=== PATIENT | female | born 1960 | race African-American/Black ===

== ENCOUNTER 2017-10-12 23:33 | Emergency (ER) | payer OTHER ==
[2017-10-13 02:19] LABS: ADD MAN DIFF? NO
[2017-10-13 02:21] LABS: BASOPHILS % 0.3 % (0.0-2.0); EOSINOPHILS # 0.2 10^3/ul (0.0-0.5); EOSINOPHILS % 2.2 % (0.0-7.0); HEMATOCRIT 37.3 % (37.0-47.0); HEMOGLOBIN 12.1 g/dl (12.0-16.0); LYMPHOCYTES # 2.9 10^3/ul (0.8-2.9); LYMPHOCYTES % 33.3 % (15.0-51.0); MEAN CORPUSCULAR HEMOGLOBIN 32.3 pg (29.0-33.0); MEAN CORPUSCULAR HGB CONC 32.4 g/dl (32.0-37.0); MEAN CORPUSCULAR VOLUME 99.5 fl (82.0-101.0); MEAN PLATELET VOLUME 10.2 fl (7.4-10.4); MONOCYTE # 0.7 10^3/ul (0.3-0.9); MONOCYTES % 8.1 % (0.0-11.0); NEUTROPHIL # 4.9 10^3/ul (1.6-7.5); NEUTROPHILS % 55.9 % (39.0-77.0); PLATELET COUNT 215 10^3/UL (140-415); RED BLOOD COUNT 3.75 10^6/ul (4.20-5.40); RED CELL DISTRIBUTION WIDTH 12.3 % (11.5-14.5)
[2017-10-13 02:21] LABS: WHITE BLOOD COUNT 8.8 10^3/ul (4.8-10.8)
[2017-10-13 02:43] LABS: ADD UMIC YES; UR ASCORBIC ACID NEGATIVE (NEGATIVE); UR BACTERIA FEW /HPF (NONE SEEN); UR BILIRUBIN (Dip) NEGATIVE (NEGATIVE); UR BLOOD (Dip) NEGATIVE (NEGATIVE); UR CLARITY CLEAR (CLEAR); UR COLOR YELLOW (YELLOW); UR GLUCOSE (Dip) NEGATIVE (NEGATIVE); UR KETONES (Dip) NEGATIVE (NEGATIVE); UR LEUKOCYTE ESTERASE (Dip) TRACE Leu/ul (NEGATIVE); UR NITRITE (Dip) NEGATIVE (NEGATIVE); UR RBC 1 /HPF (0-5); UR TOTAL PROTEIN (Dip) NEGATIVE (NEGATIVE); UR UROBILINOGEN (Dip) NEGATIVE (NEGATIVE); UR WBC 3 /HPF (0-5)
[2017-10-13 02:45] LABS: ALANINE AMINOTRANSFERASE 69 IU/L (13-69); ALBUMIN 3.9 g/dl (3.3-4.9); ALBUMIN/GLOBULIN RATIO 0.95; ALKALINE PHOSPHATASE 111 IU/L (42-121); ANION GAP 16 (8-16); ASPARTATE AMINO TRANSFERASE 72 IU/L (15-46); BILIRUBIN,INDIRECT 0.3 mg/dl (0-1.1); BILIRUBIN,TOTAL 0.3 mg/dl (0.2-1.3); BLOOD UREA NITROGEN 20 mg/dl (7-20); CALCIUM 9.7 mg/dl (8.4-10.2); CARBON DIOXIDE 28 mmol/L (21-31); CHLORIDE 104 mmol/L (97-110); CREATININE 0.73 mg/dl (0.44-1.00); GLUCOSE 100 mg/dl (70-220); POTASSIUM 3.7 mmol/L (3.5-5.1); SODIUM 144 mmol/L (135-144)
[2017-10-13 02:48] LABS: ACETAMINOPHEN < 10.0 ug/ml (10.0-30.0); ETHANOL < 10.0 mg/dl; SALICYLATE < 1.0 mg/dl (5.0-30.0)
[2017-10-13 02:56] LABS: BARBITURATES NEGATIVE (NEGATIVE); BENZODIAZEPINES NEGATIVE (NEGATIVE); CANNABINOIDS NEGATIVE (NEGATIVE); COCAINE NEGATIVE (NEGATIVE)
[2017-10-13 02:57] LABS: OPIATES NEGATIVE (NEGATIVE)
[2017-10-13 03:09] LABS: AMPHETAMINE/METHAMPHETAMINE POSITIVE (NEGATIVE)
[2017-10-13] MEDS: DIPHENHYDRAMINE 50 MG INJ IM ×2 (04:49)
[2017-10-13] MEDS: HALOPERIDOL 5 MG INJ IM ×2 (04:49)
[2017-10-13] MEDS: LORAZEPAM 2 MG INJ IM ×2 (04:50)
[2017-10-13] MEDS: IBUPROFEN 800 MG TAB PO ×2 (12:00)
[2017-10-14] MEDS: IBUPROFEN 600 MG TAB PO ×2 (03:28)
[2017-10-15] MEDS: RISPERIDONE 1 MG TAB PO ×4 (06:30→21:30)
[2017-10-16] MEDS: RISPERIDONE 1 MG TAB PO ×4 (08:46→21:50)
[2017-10-17] MEDS ORDERED: HALOPERIDOL 5 MG INJ IM (05:00)
[2017-10-17] MEDS ORDERED: BENZTROPINE 2 MG INJ IM (05:00)
[2017-10-17] MEDS: RISPERIDONE 1 MG TAB PO (11:05)
== END 2017-10-17 12:06 ==
LOC: E/R 10-17 12:06
DX: M54.2 Cervicalgia (principal); M54.6 Pain in thoracic spine; F15.10 Other stimulant abuse, uncomplicated; F29 Unspecified psychosis not due to a substance or known physiological condition
CPT/HCPCS: 71045; 72125; 72128; 72131; 80053; 80306; 80307; 81001; 85025; 96372; 99285-25

== ENCOUNTER 2017-10-17 14:20 | Emergency (ER) | payer OTHER ==
[2017-10-17] MEDS: KETOROLAC 30 MG INJ IM (17:08)
== END 2017-10-17 21:16 ==
LOC: E/R 14:20
DX: R45.851 Suicidal ideations (principal); F17.210 Nicotine dependence, cigarettes, uncomplicated
CPT/HCPCS: 96372; 99284-25